=== PATIENT | female | born 1965 | race American Indian/Alaskan Native ===

== ENCOUNTER 2021-07-10 10:48 | Emergency (ER) | payer MEDICAID ==
--- NOTE | 2021-07-10 10:53 | Emergency Department Report ---
ED General Adult HPI - General Stated complaint: SWOLLEN RIGHT LOWER LEG Time Seen by Provider: 07/10/21 10:50 - History of Present Illness Initial comments: 56-year-old -[place] female patient presents with complaints of left lower leg pain for the past 2 days. She denies any injury, recent long travel, recent surgeries, history of DVT/PE/cancer, hormone use, or shortness of breath/hemoptysis/chest pain. Patient states she was seen by her PCP and referred here to the ED for rule out of a DVT. No numbness/tingling or weakness in the leg or difficulty moving the leg per patient. She also denies any fever/chills/sweats. Past medical history includes hypertension -: Sudden - Related Data Previous Rx's Medication Instructions Recorded Last Taken Type Naproxen 500 mg PO BID PRN #20 tab 07/10/21 Unknown Rx Allergies Allergy/AdvReac Type Severity Reaction Status Date / Time No Known Allergies Allergy Unverified 07/10/21 14:12 ED Review of Systems ROS: Stated complaint: SWOLLEN RIGHT LOWER LEG Other details as noted in HPI Constitutional: denies: chills, fever, malaise Cardiovascular: as per HPI Musculoskeletal: denies: joint swelling Skin: denies: rash, change in color Neurological: denies: as per HPI Hematological/Lymphatic: denies: easy bleeding, easy bruising ED Past Medical Hx - Medications Home Medications: Home Medications Medication Instructions Recorded Confirmed Last Taken Type Naproxen 500 mg PO BID PRN #20 tab 07/10/21 Unknown Rx ED Physical Exam - General General appearance: alert, in no apparent distress, obese - Head Head exam: Present: atraumatic, normocephalic - Eye Eye exam: Present: normal appearance - Respiratory Respiratory exam: Present: normal lung sounds bilaterally. Absent: respiratory distress - Cardiovascular Cardiovascular Exam: Present: regular rate, normal rhythm - Extremities Exam Extremities exam: Present: full ROM, calf tenderness (Left posterior lateral; no swelling or skin changes noted), other (Normal pedal pulse noted). Absent: p edal edema - Neurological Exam Neurological exam: Present: alert, oriented X3. Absent: normal gait (Antalgic) - Psychiatric Psychiatric exam: Present: normal affect, normal mood - Skin Skin exam: Present: warm, dry, intact, normal color. Absent: rash ED Course Vital Signs 07/10/21 07/10/21 10:51 14:25 Temperature 98.1 F Pulse Rate 63 Respiratory 16 18 Rate Blood Pressure 192/64 134/75 [Left] O2 Sat by Pulse 100 99 Oximetry ED Medical Decision Making - Radiology Data Radiology results: report reviewed DUPLEX DOPPLER LOWER EXTREMITY VEINS, LEFT INDICATION / CLINICAL INFORMATION: pain, no injury. TECHNIQUE: Duplex doppler imaging was performed through the veins of the left lower extremity using venous compression and other maneuvers. COMPARISON: None available. FINDINGS: LEFT COMMON FEMORAL VEIN: Negative. LEFT FEMORAL VEIN: Negative. LEFT POPLITEAL VEIN: Negative. LEFT CALF VEINS: Negative. ADDITIONAL FINDINGS: None. IMPRESSION: 1. No sonographic evidence for DVT in the left lower extremity. - Medical Decision Making 56-year-old -[place] female patient presents with complaints of left lower leg pain for the past 2 days. She denies any injury, recent long travel, recent surgeries, history of DVT/PE/cancer, hormone use, or shortness of breath/hemoptysis/chest pain. Patient states she was seen by her PCP and referred here to the ED for rule out of a DVT. No numbness/tingling or weakness in the leg or difficulty moving the leg per patient. She also denies any fever/chills/sweats. Past medical history includes hypertension Ultrasound is negative for DVT. No swelling or skin changes noted on exam of the leg she has a normal pedal pulse. Recommend follow-up with primary care for further evaluation and treatment within 2 to 5 days. Tylenol recommended as needed for pain. Strict return precautions were discussed in detail with patient who verbalized understanding. Critical care attestation.: If time is entered above; I have spent that time in minutes in the direct care of this critically ill patient, excluding procedure time. ED Disposition Clinical Impression: Left leg pain Disposition: HOME / SELF CARE / HOMELESS Is pt being admited?: No Condition: Stable Instructions: Muscle Strain, Pain Without a Known Cause Prescriptions: Naproxen 500 mg PO BID PRN #20 tab PRN Reason: pain Referrals: PRIMARY CARE, [Primary Care Provider] - 2-3 Days Forms: Work/School Release Form(ED)
--- NOTE | 2021-07-10 13:34 | Vascular Lab Report ---
DUPLEX DOPPLER LOWER EXTREMITY VEINS, LEFT INDICATION / CLINICAL INFORMATION: pain, no injury. TECHNIQUE: Duplex doppler imaging was performed through the veins of the left lower extremity using v enous compression and other maneuvers. COMPARISON: None available. FINDINGS: LEFT COMMON FEMORAL VEIN: Negative. LEFT FEMORAL VEIN: Negative. LEFT POPLITEAL VEIN: Negative. LEFT CALF VEINS: Negative. ADDITIONAL FINDINGS: None. IMPRESSION: 1. No sonographic evidence for DVT in the left lower extremity. Signer Name: Ronnie Le MD Signed: 07/10/2021 1:29 PM Workstation Name: [email or web address]
[2021-07-10] MEDS ORDERED: IBUPROFEN 800 MG TAB PO STA (14:08)
[2021-07-10] MEDS ORDERED: ACETAMINOPHEN 500 MG TAB PO STA (14:08)
[2021-07-10 14:26] VITALS: BP 134/75
== END 2021-07-10 14:26 | disposition home or self-care (01) ==
LOC: ED 10:48
DX: M79.605 Pain in left leg (principal)
CPT/HCPCS: 99283